=== PATIENT | male | born 1995 | race Asian ===

== ENCOUNTER → 2018-11-19 07:34 | Outpatient (CLI) | payer OTHER, SELFPAY ==
--- NOTE | 2018-11-19 | DI.MRI.S_ITS ---
PROCEDURE: MR SHOULDER RT W CON INDICATIONS: RT SHOULDER PAIN TECHNIQUE: After the administration of 12 mL of dilute intra-articular Gadolinium contrast, oblique coronal T1 and T2 spin echo with fat saturation, oblique sagittal T1 spin echo with and without fat saturation, oblique sagittal T2 fast spin echo with fat saturation, axial T1 spin echo with fat saturation through the shoulder. COMPARISON: None. FINDINGS: Image quality: Excellent. Rotator cuff: Distal supraspinatus and infraspinatus tendinosis is seen with extension of low grade articular surface partial thickness tear involving distal supraspinatus. Distal subscapularis tendon is intact. No full-thickness rotator cuff tendon rupture. No rotator cuff muscle atrophy on sagittal images. Bones and bursae: No bone marrow contusions or fractures. No acromioclavicular joint degeneration. The acromion demonstrates conventional anatomy, without an os acromiale. Capsule and soft tissues: The labrum and glenohumeral ligaments appear intact. The long head of the biceps tendon demonstrates normal location and morphology. The rotator interval appears normal, without fibrosis. The coracohumeral ligament is of normal thickness. No intra-articular bodies. IMPRESSION: 1. No MR evidence of focal labral tear. 2. Mild distal supraspinatus and infraspinatus tendinosis and very low-grade articular surface partial-thickness tear involving distal supraspinatus near its insertion the humeral head extending to the musculotendinous junction. No full-thickness rotator cuff tendon rupture. No muscle atrophy. 3. No marrow edema. No fracture or dislocation. Dictated by: Serg Monsalve M.D. on 11/19/2018 at 9:07 Approved by: Serg Monsalve M.D. on 11/19/2018 at 9:10
--- NOTE | 2018-11-19 | DI.RAD.S_ITS ---
PROCEDURE: FL SHOULDER INJECTION MR/CT RT INDICATIONS: RT SHOULDER PAIN TECHNIQUE: The indications, alternatives, benefits, risks, and complications of the procedure were explained to the patient. Written informed consent was obtained and placed in the chart. The shoulder was examined fluoroscopically and a site for needle placement chosen for entry into the glenohumeral joint from an anterior approach. The skin was prepped and draped in a sterile fashion, and 1% lidocaine infiltrated from skin down to joint capsule. A spinal needle was inserted into the glenohumeral joint, and a small amount of iodinated contrast media injected to confirm intra-articular placement of the needle tip. This was followed by approximately 12 mL dilute solution of a gadolinium containing MR contrast agent. The needle was removed and a dressing was applied. The patient was given postprocedural instructions and sent to the MR suite for MR imaging. FINDINGS: A single fluoroscopic spot image demonstrates intra-articular location of injected iodinated contrast. IMPRESSION: Successful fluoroscopically guided administration of dilute Gadolinium solution into the shoulder joint for MR arthrogram. Dictated by: Vin Chairez M.D. on 11/19/2018 at 9:41 Approved by: Vin Chairez M.D. on 11/19/2018 at 9:52
== END ==
DX: M25.511 Pain in right shoulder (principal); M75.111 Incomplete rotator cuff tear or rupture of right shoulder, not specified as traumatic
CPT/HCPCS: 23350; 73222; 77002